=== PATIENT | female | born 1955 | race Caucasian/White ===

== ENCOUNTER 2016-05-09 16:02 | Emergency (ER) | payer OTHER ==
[~2016-05-09] VITALS: Wt 80.0 kg
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
[2016-05-09] MEDS ORDERED: KETOROLAC 30 MG INJ IM STA (18:05)
[2016-05-09] MEDS ORDERED: IBUP-1542 PO (18:08)
[2016-05-09] MEDS ORDERED: CARI350T PO (18:08)
--- NOTE | 2016-05-09 18:41 | RADRPT ---
PROCEDURE: XR left knee. CLINICAL INDICATION: Knee pain TECHNIQUE: AP, tunnel and lateral views are available for review. COMPARISON: None available FINDINGS: There is moderate to severe osteoarthrosis involving the medial tibial femoral compartment and mild to moderate osteoarthrosis involving the lateral tibial femoral compartment and the patellofemoral c ompartment. This is associated with joint space narrowing, subchondral sclerosis and osteophytosis. There is otherwise normal mineralization, architecture and alignment. No fractures are identified. No osseous lesions are identified. The soft tissues are unremarkable. IMPRESSION: Moderate to severe osteoarthrosis involving the medial tibial femoral compartment and mild to modera te osteoarthrosis involving the lateral tibial femoral compartment and the patellofemoral compartmen t. RPTAT: [facility] .Jesús Martinez MD, Date Time Electronically viewed and signed by .Jesús Martinez MD, on 05/09/2016 18:41 .B/
[2016-05-09 19:00] VITALS: BP 132/82; PULSE 77; RESP 18; TEMP 98.3
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
[2016-05-10] MEDS ORDERED: CARBOPROST 250 MCG INJ ONE (11:02)
== END 2016-05-09 19:10 | disposition home or self-care (01) ==
LOC: E/R 16:02
DX: S83.92XA Sprain of unspecified site of left knee, initial encounter (principal); T14.8 Other injury of unspecified body region; V49.40XA Driver injured in collision with unspecified motor vehicles in traffic accident, initial encounter
CPT/HCPCS: 73562; J1885; 96372